=== PATIENT | female | born 1965 | race American Indian/Alaskan Native ===

== ENCOUNTER 2020-09-27 17:15 | Emergency (ER) | payer SELFPAY ==
[2020-09-27 17:37] VITALS: BP 140/80
[2020-09-27] MEDS ORDERED: HYDROcodone/ACETAMINOPHEN 5-325 MG TAB PO ONE (17:43)
--- NOTE | 2020-09-27 17:47 | Emergency Department Report ---
ED Lower Extremity HPI - General Chief Complaint: Extremity Injury, Lower Stated Complaint: LEG INJURY Time Seen by Provider: 09/27/20 17:43 Source: patient Mode of arrival: Ambulatory Limitations: No Limitations - History of Present Illness Initial Comments: Patient is a 54-year-old female presents emergency room complaints of a right knee injury that occurred yesterday. She states that she was standing up on a ladder in the storage unit and accidentally slipped and fell and landed directly on her knee. She states that she was approximately 5 or 6 rungs up the ladder. She states that she has not been ambulatory secondary to the pain. She has associated knee swelling. She denies any numbness or weakness. Past medical history of hypertension and right foot fracture in 2009. She currently has on a knee immobilizer which she states that she has from her prior knee injury but has never had surgery on this knee. She denies any medication allergies. - Related Data Previous Rx's Medication Instructions Recorded Last Taken Type Naproxen [EC-Naprosyn] 500 mg PO BID PRN #20 tablet. 09/27/20 Unknown Rx traMADoL [Ultram 50 MG tab] 50 mg PO Q6HR PRN #14 tablet 09/27/20 Unknown Rx Allergies Allergy/AdvReac Type Severity Reaction Status Date / Time No Known Allergies Allergy Unverified 09/27/20 17:36 ED Review of Systems ROS: Stated complaint: LEG INJURY Other details as noted in HPI Comment: All other systems reviewed and negative ED Past Medical Hx - Past Medical History Previous Medical History?: Yes Hx Hypertension: Yes - Surgical History Past Surgical History?: No - Medications Home Medications: Home Medications Medication Instructions Recorded Confirmed Last Taken Type Naproxen [EC-Naprosyn] 500 mg PO BID PRN #20 tablet. 09/27/20 Unknown Rx traMADoL [Ultram 50 MG tab] 50 mg PO Q6HR PRN #14 tablet 09/27/20 Unknown Rx ED Physical Exam - General Limitations: No Limitations General appearance: alert, in no apparent distress - Head Head exam: Present: atraumatic, normocephalic - Eye Eye exam: Present: normal appearance - ENT ENT exam: Present: mucous membranes moist - Respiratory Respiratory exam: Absent: respiratory distress, accessory muscle use - Extremities Exam Extremities exam: Present: other (ttp and edema to the right anterior knee, appears to have high riding of the right patella, decreased ROM secondary to pain, neurovascularly intact) - Neurological Exam Neurological exam: Present: alert, oriented X3 - Psychiatric Psychiatric exam: Present: normal affect, normal mood - Skin Skin exam: Present: warm, dry, intact ED Course Vital Signs 09/27/20 09/27/20 17:37 19:00 Temperature 98 F Pulse Rate 107 H Respiratory 16 18 Rate Blood Pressure 140/80 [Right] O2 Sat by Pulse 98 Oximetry - Reevaluation(s) Reevaluation #1: 09/27/20 19:[address] Dozier, ER attending regarding patient x-ray results, he advised to order a CT of the right leg without contrast ED Lower Extremity MDM - Radiology Data Radiology results: report reviewed, image reviewed Ordering Physician: PARISH GALVAN Date of Service: 09/27/20 Procedure(s): XR knee 4+V RT Accession Number(s): [id number] cc: PARISH GALVAN Fluoro Time In Minutes: RIGHT KNEE 4 VIEWS INDICATION / CLINICAL INFORMATION: fall, right knee pain. COMPARISON: None available. FINDINGS: There is some irregularity of the tibial spine and medial tibial plateau worrisome for fracture. CT or MRI of the right knee would BE helpful for further evaluation if clinically indicated Signer Name: Oscar Huitron MD FACR Signed: 09/27/2020 6:25 PM Workstation Name: [id number] Transcribed By: MS Dictated By: Oscar Huitron MD Electronically Authenticated By: Oscar Huitron MD Signed Date/Time: 09/27/201824 DD/ 23 TD/TT: Print Cancel Ordering Physician: PARISH GALVAN Date of Service: 09/27/20 Procedure(s): CT lower extremity RT wo con Accession Number(s): [id number] cc: PARISH GALVAN CT lower extremity RT wo con INDICATION / CLINICAL INFORMATION: fall directly on right knee, abnormal xr. TECHNIQUE: All CT scans at this location are performed using CT dose reduction for ALARA by means of automated exposure control. COMPARISON: None available. FINDINGS: There is a severely comminuted fracture of the posterior tibial plateau also involving the tibial spine. There is approximately 4 mm of depression of the medial plateau and with moderate displa cement of the fracture fragments. A joint effusion is present. The distal femur and proximal fibula are unremarkable in appearance. IMPRESSION: Freely comminuted fracture of the posterior tibial plateau with 4 mm of depression of the medial plateau Signer Name: Oscar Huitron MD FACR Signed: 09/27/2020 8:18 PM Workstation Name: [id number] Transcribed By: MS Dictated By: Oscar Huitron MD Electronically Authenticated By: Oscar Huitron MD Signed Date/Time: 09/27/202017 DD/ 15 TD/TT: Print Cancel - Medical Decision Making Patient is a 54-year-old female presents emergency room complaints of a right knee injury that occurred yesterday. She states that she was standing up on a ladder in the storage unit and accidentally slipped and fell and landed directly on her knee. She states that she was approximately 5 or 6 rungs up the ladder. She states that she has not been ambulatory secondary to the pain. She has associated knee swelling. She denies any numbness or weakness. Past medical history of hypertension and right foot fracture in 2009. She currently has on a knee immobilizer which she states that she has from her prior knee injury but has never had surgery on this knee. She denies any medication allergies. Initial vitals with very mild tachycardia likely secondary to pain. On exam:ttp and edema to the right anterior knee, appears to have high riding of the right patella, decreased ROM secondary to pain, neurovascularly intact. X-ray right knee: There is some irregularity of the tibial spine and medial tibial plateau worrisome for fracture. CT or MRI of the right knee would BE helpful for further evaluation if clinically indicated. Spoke to Dr. Dozier, ER attending regarding patient x-ray results, he advised to order a CT of the right leg without contrast. CT right lower extremity without contrast: Freely comminuted fracture of the posterior tibial plateau with 4 mm of depression of the medial plateau. Patient given pain medication while in the emergency department as she did not drive and symptoms improved. Discussed all results with patient and patient was given her CT report. Discussed the importance of orthopedic follow- up. Patient already has a long-leg knee immobilizer from a previous injury, advised patient not to remove and to not bear weight on the leg. Patient states that she already has crutches in her car and does not want another set of crutches. Patient given prescription for tramadol and naproxen. Advised patient Please take medication as prescribed. Do not drive or operate machinery while taking severe pain medication. Please do not bear weight on the leg. please do not remove your leg brace. Follow-up with an orthopedic doctor. Return to emergency room for new or worsening symptoms. Critical care attestation.: If time is entered above; I have spent that time in minutes in the direct care of this critically ill patient, excluding procedure time. ED Disposition Clinical Impression: Tibial plateau fracture, right Qualifiers: Encounter type: initial encounter Fracture type: closed Qualified Code(s): S82.141A - Displaced bicondylar fracture of right tibia, initial encounter for closed fracture Disposition: TO HOME OR SELFCARE Is pt being admited?: No Does the pt Need Aspirin: No Condition: Stable Instructions: Tibial Fracture, Adult Additional Instructions: Please take medication as prescribed. Do not drive or operate machinery while taking severe pain medication. Please do not bear weight on the leg. please do not remove your leg brace. Follow-up with an orthopedic doctor. Return to emergency room for new or worsening symptoms. Prescriptions: Naproxen [EC-Naprosyn] 500 mg PO BID PRN #20 tablet.dr PRN Reason: pain traMADoL [Ultram 50 MG tab] 50 mg PO Q6HR PRN #14 tablet PRN Reason: Pain , Severe (7-10) Referrals: [facility] [Provider Group] - 2-3 Days MAMI BHATT MD [Staff Physician] - 2-3 Days PRIMARY MD LEONARD [Primary Care Provider] - 2-3 Days Time of Disposition: 20:26 Print Language: PANAMANIAN
--- NOTE | 2020-09-27 18:29 | XRay Report ---
RIGHT KNEE 4 VIEWS INDICATION / CLINICAL INFORMATION: fall, right knee pain. COMPARISON: None available. FINDINGS: There is some irregularity of the tibial spine and medial tibial plateau worrisome for fracture. CT o r MRI of the right knee would BE helpful for further evaluation if clinically indicated Signer Name: Oscar Huitron MD FACR Signed: 09/27/2020 6:25 PM Workstation Name: [id number]
--- NOTE | 2020-09-27 20:22 | Cat Scan Report ---
CT lower extremity RT wo con INDICATION / CLINICAL INFORMATION: fall directly on right knee, abnormal xr. TECHNIQUE: All CT scans at this location are performed using CT dose reduction for ALARA by means of automated e xposure control. COMPARISON: None available. FINDINGS: There is a severely comminuted fracture of the posterior tibial plateau also involving the tibial spi ne. There is approximately 4 mm of depression of the medial plateau and with moderate displacement of the fracture fragments. A joint effusion is present. The distal femur and proximal fibula are unrema rkable in appearance. IMPRESSION: Freely comminuted fracture of the posterior tibial plateau with 4 mm of depression of the medial plat eau Signer Name: Oscar Huitron MD FACR Signed: 09/27/2020 8:18 PM Workstation Name: [id number]
== END 2020-09-27 20:38 | disposition home or self-care (01) ==
LOC: ED 17:15
DX: S82.141A Displaced bicondylar fracture of right tibia, initial encounter for closed fracture (principal); I10 Essential (primary) hypertension; Z79.899 Other long term (current) drug therapy; W01.0XXA Fall on same level from slipping, tripping and stumbling without subsequent striking against object, initial encounter; Y93.89 Activity, other specified; Y92.89 Other specified places as the place of occurrence of the external cause; Y99.8 Other external cause status